=== PATIENT | male | born 1960 | race African-American/Black ===

== ENCOUNTER 2020-02-26 06:24 | Emergency (ER) | payer SELFPAY ==
[~2020-02-26] VITALS: Ht 193 cm; Wt 91.0 kg
[~2020-02-26 06:24] MED LIST: AMOXICILLIN; DIPH25CA83; IBUPROFEN; METF-416
[2020-02-26] MEDS ORDERED: KETOROLAC 30MG/ML VIAL IV STA (06:41)
[2020-02-26] MEDS ORDERED: SODIUM CHLORIDE 0.9% 1,000 ML IV ONE (06:41)
[2020-02-26] MEDS ORDERED: ONDANSETRON HCL 4MG/2ML INJ IV STA (06:41)
[2020-02-26 07:09] LABS: BASOPHILS % 0.3 % (0.0-2.0); EOSINOPHILS % 0.4 % (0.0-5.0); HEMATOCRIT. 38.6 % (42.0-52.0); HEMOGLOBIN. 13.2 g/dL (14.0-18.0); LYMPHOCYTES % 14.8 % (20.0-50.0); MEAN CORPUSCULAR HEMOGLOBIN 28.7 pg (28.0-32.0); MEAN CORPUSCULAR VOLUME 83.5 fL (80.0-94.0); MEAN PLATELET VOLUME 9.5 fl (7.4-10.4); MONOCYTES % 4.8 % (2.0-8.0); NEUTROPHILS % 79.7 % (40.0-76.0); PLATELET 175 x1000/uL (130-400); RED BLOOD CELL COUNT 4.61 mill/uL (4.7-6.1); RED CELL DISTRIBUTION WIDTH 13.8 % (11.6-14.6)
[2020-02-26 07:16] LABS: CHLORIDE 102 mEq/L (98-107)
[2020-02-26 07:20] LABS: CLARITY URINE TURBID (CLEAR); COLOR URINE YELLOW (YELLOW); KETONES URINE 3+ (NEGATIVE); LEUKOCYTE ESTERASE URINE NEGATIVE (NEGATIVE); NITRITE URINE NEGATIVE (NEGATIVE); OCCULT BLOOD URINE NEGATIVE (NEGATIVE); PROTEIN URINE TRACE (NEGATIVE); SPECIFIC GRAVITY URINE 1.029 (1.005-1.030)
[2020-02-26 07:21] LABS: ETHANOL BLOOD < 10 mg/dL
[2020-02-26 07:24] LABS: *AMPHETAMINES SCREEN URINE NEGATIVE (NEGATIVE); *BARBITURATES SCREEN URINE NEGATIVE (NEGATIVE); *BENZODIAZEPINES SCREEN URINE NEGATIVE (NEGATIVE); *COCAINE SCREEN URINE PRESUMTIVE POSITIVE (NEGATIVE)
[2020-02-26 07:25] LABS: CANNABINOID URINE SCREEN NEGATIVE (NEGATIVE); METHADONE URINE SCREEN NEGATIVE (NEGATIVE); OPIATES URINE SCREEN NEGATIVE (NEGATIVE); PHENCYCLIDINE URINE SCREEN NEGATIVE (NEGATIVE)
[2020-02-26] MEDS ORDERED: CEFTRIAXONE 1 G PREMIX 50 ML IV ONE (08:00)
[2020-02-26 08:45] VITALS: BP 146/72
== END 2020-02-26 08:50 | disposition home or self-care (01) ==
LOC: ER 06:31
DX: K57.92 Diverticulitis of intestine, part unspecified, without perforation or abscess without bleeding (principal); E11.9 Type 2 diabetes mellitus without complications; F17.200 Nicotine dependence, unspecified, uncomplicated; Z79.899 Other long term (current) drug therapy
CPT/HCPCS: 36415; 74176; 80053; 80305; 80320; 81003; 83690; 85025; 96365; 96375; 99284; J0696; J1885; J2405; J7030; G0480

== ENCOUNTER 2024-02-11 07:17 | Emergency (ER) | payer OTHER ==
[~2024-02-11] VITALS: Ht 193 cm; Wt 91.0 kg
[2024-02-11 07:19] VITALS: O2SAT 98
[2024-02-11 07:45] LABS: BASOPHILS % 0.4 % (0.0-2.0); EOSINOPHILS % 1.9 % (0.0-5.0); HEMATOCRIT. 38.2 % (42.0-52.0); HEMOGLOBIN. 12.5 g/dL (14.0-18.0); LYMPHOCYTES % 30.7 % (20.0-50.0); MEAN CORPUSCULAR HEMOGLOBIN 28.2 pg (28.0-32.0); MEAN CORPUSCULAR HGB CONC 32.6 g/dL (31.0-37.0); MEAN CORPUSCULAR VOLUME 86.5 fL (80.0-94.0); MEAN PLATELET VOLUME 9.3 fl (7.4-10.4); PLATELET 171 x1000/uL (130-400); RED BLOOD CELL COUNT 4.42 mill/uL (4.7-6.1); RED CELL DISTRIBUTION WIDTH 14.1 % (11.6-14.6); WHITE BLOOD COUNT 4.9 x1000/uL (4.5-11.0)
[2024-02-11 07:55] LABS: PROTHROMBIN TIME 11.5 sec (9.6-11.0)
[2024-02-11 07:58] LABS: CHLORIDE 102 mEq/L (98-107); POTASSIUM 3.8 mEq/L (3.5-5.1); SODIUM 137 mEq/L (136-145)
[2024-02-11 07:59] LABS: CARBON DIOXIDE 26 mEq/L (21-32)
[2024-02-11 08:00] LABS: CALCIUM 9.8 mg/dL (8.7-10.4)
[2024-02-11 08:04] LABS: CREATININE 1.2 mg/dL (0.6-1.3); GLUCOSE 295 mg/dL (70-105)
[2024-02-11 08:05] LABS: UREA NITROGEN BLOOD 11 mg/dL (9-23)
[2024-02-11 08:12] LABS: LACTIC ACID 4.4 mmol/L (0.4-2.0)
[2024-02-11 08:13] LABS: TROPONIN I HIGH SENSITIVITY 140 ng/L (3.0-53)
[2024-02-11] MEDS: SODIUM CHLORIDE 0.9% 2,000 ML IV ONE (08:20)
[2024-02-11 10:43] LABS: LACTIC ACID 3.1 mmol/L (0.4-2.0)
[2024-02-11 11:11] LABS: TROPONIN I HIGH SENSITIVITY 133 ng/L (3.0-53)
[2024-02-11 11:58] VITALS: BP 149/81; PULSE 69; RESP 18; TEMP 98.3
== END 2024-02-11 12:19 | disposition home or self-care (01) ==
LOC: ER 07:17 → CANBEDREQ 10:06 → ER 12:19
DX: R55 Syncope and collapse (principal); I95.9 Hypotension, unspecified; R74.02 Elevation of levels of lactic acid dehydrogenase [LDH]; E11.9 Type 2 diabetes mellitus without complications; F17.210 Nicotine dependence, cigarettes, uncomplicated
CPT/HCPCS: 99284; 96360; 80048; 83880; 83605; 85025; 85610; 84484; 36415; 93005; J7030